=== PATIENT | female | born 1945 | race African-American/Black ===

== ENCOUNTER 2019-05-16 08:42 | Emergency (ER) | payer OTHER ==
[2019-05-16 08:59] VITALS: BP 177/89; PULSE 68; TEMP 98; BMI 28.8
--- NOTE | 2019-05-16 09:46 | PDOC ---
History of Present Illness - General Chief Complaint: Injury Stated Complaint: HEAD INJURY Time Seen by Provider: 05/16/19 09:01 History Source: Patient Exam Limitations: No Limitations Past History - Travel Traveled outside of the country in the last 30 days: No Close contact w/someone who was outside of country & ill: No - Past Medical History Allergies/Adverse Reactions: Allergies Allergy/AdvReac Type Severity Reaction Status Date / Time No Known Allergies Allergy Verified 05/16/19 08:56 Home Medications: Ambulatory Orders NK [No Known Home Medication] 05/16/19 COPD: No Diabetes: Yes (BORDERLINE) HTN: Yes Hypercholesterolemia: Yes - Immunization History Immunization Up to Date: No - Psycho Social/Smoking Cessation Hx Smoking History: Never smoked Hx Alcohol Use: No Drug/Substance Use Hx: No Review of Systems - Review of Systems Able to Perform ROS?: Yes Comments:: 05/16/19 09:41 CONSTITUTIONAL: Absent: fever, chills, diaphoresis, generalized weakness, malaise, loss of appetite HEENT: Absent: rhinorrhea, nasal congestion, throat pain, throat swelling, difficulty swallowing, mouth swelling, ear pain, eye pain, visual Changes MUSCULOSKELETAL: Absent: myalgia, arthralgia, joint swelling SKIN: Absent: rash, itching, pallor HEMATOLOGIC/IMMUNOLOGIC: Absent: easy bleeding, easy bruising, lymphadenopathy, frequent infections ENDOCRINE: Absent: unexplained weight gain, unexplained weight loss, heat intolerance, cold intolerance NEUROLOGIC: Absent: headache, focal weakness or paresthesias, dizziness, unsteady gait, seizure, mental status changes, bladder or bowel incontinence PSYCHIATRIC: Absent: anxiety, depression, suicidal or homicidal ideation, hallucinations. Is the patient limited Albanian proficient: No *Physical Exam - Vital Signs Last Vital Signs Temp Pulse Resp BP Pulse Ox 98.0 F 68 18 177/89 H 100 05/16/19 08:56 05/16/19 08:56 05/16/19 08:56 05/16/19 08:56 05/16/19 08:56 - Physical Exam 05/16/19 09:41 GENERAL: Well developed, well nourished. Awake and alert. No acute distress. HEENT: Normocephalic, atraumatic. PERRLA, EOMI. No conjunctival pallor. Sclera are non- icteric. Moist mucous membranes. Oropharynx is clear. NECK: Supple. Full ROM. No JVD. Carotid pulses 2+ and symmetric, without bruits. No thyromegaly. No lymphadenopathy. MUSCULOSKELETAL Normal range of motion at all joints. No bony deformities or tenderness. No CVA tenderness. EXTREMITIES: No cyanosis. No clubbing. No edema. No calf tenderness. SKIN: Warm and dry. Normal capillary refill. No rashes. No jaundice. NEUROLOGICAL: Alert, awake, appropriate. Cranial nerves 2-12 intact. No deficits to light touch and temperature in face, upper extremities and lower extremities. No motor deficits in the in face, upper extremities and lower extremities. Normoreflexic in the upper and lower extremities. Normal speech. Toes are down- going bilaterally. Gait is normal without ataxia. PSYCHIATRIC: Cooperative. Good eye contact. Appropriate mood and affect. Medical Decision Making - Medical Decision Making 05/16/19 09:42 The patient is a 73-year-old female who presents to the ER after hitting her head 1 week ago. She states that she bent over and hit her head on a counter. She denies headaches, dizziness, LOC at the time of the accident, vomiting. She has no complaints at this time. Pt does not take blood thinners A/P: Head injury On exam patient is neurologically intact with no focal findings. ENT exam is normal. Patient has no complaints at this time, she is not on blood thinners Likely she just bumped her head. No signs of concussion. Discharge home with primary care follow-up I discussed the physical exam findings, ancillary test results and final diagnoses with the patient. I answered all of the patient's questions. The patient was satisfied with the care received and felt comfortable with the discharge plan and treatment plan. The Patient agrees to follow up with the primary care physician/specialist within 24-72 hours. Return precautions were given. Discharge - Discharge Information Problems reviewed: Yes Clinical Impression/Diagnosis: Head injury Qualifiers: Encounter type: initial encounter Qualified Code(s): S09.90XA - Unspecified injury of head, initial encounter Condition: Stable Disposition: HOME - Admission No - Follow up/Referral Referrals: Dallas Oneal [Primary Care Provider] - - Patient Discharge Instructions Additional Instructions: You were evaluated for your head injury today. Your exam was normal. I do not expect you to have any concussion-like symptoms since the head injury happened a week ago. Please follow-up with your primary care doctor as needed. Return to the ER for any new or concerning symptoms. - Post Discharge Activity
== END 2019-05-16 09:55 | disposition home or self-care (01) ==
LOC: JERFT 08:42
DX: S09.90XA Unspecified injury of head, initial encounter (principal); R73.03 Prediabetes; I10 Essential (primary) hypertension; E78.00 Pure hypercholesterolemia, unspecified
CPT/HCPCS: 99281-25

== ENCOUNTER 2019-11-03 08:37 | Day surgery (SDC) | payer OTHER ==
[2019-10-31 16:24] VITALS: BMI 28.0
--- NOTE | 2019-11-03 07:39 | HP ---
History & Physical Update - History History: No Change - Physical Physical: No Change - Assessment Assessment: No Change - Plan Plan: No Change (No change in HP)
[~2019-11-03 08:37] MED LIST: ACETAMINOPHEN 325 MG TABLET (FP) PO PRN; IBUPROFEN 400 MG TABLET (FP) PO PRN
[2019-11-03] MEDS ORDERED: SODIUM CHLORIDE 0.9% P/F 10 ML VIAL IJ ONE (10:33)
[2019-11-03] MEDS ORDERED: LIDOCAINE HCL/PF 2% SDV 5ML VIAL ONE (10:33)
[2019-11-03] MEDS ORDERED: ceFAZolin SODIUM 1 GM VIAL ONE (10:33)
[2019-11-03] MEDS ORDERED: KETOROLAC TROMETHAMINE 30 MG/1 ML VIAL ONE (10:33)
[2019-11-03] MEDS ORDERED: DEXAMETHASONE SOD PHOSPHATE 4 MG/1 ML VIAL ONE (10:33)
[2019-11-03] MEDS ORDERED: ONDANSETRON 4 MG/2 ML VIAL IVPUSH PRN (12:06)
[2019-11-03] MEDS ORDERED: oxyCODONE HCL 5 MG TABLET PO PRN (12:06)
[2019-11-03] MEDS ORDERED: LACTATED RINGERS SOLUTION 1,000 ML IV SCH (12:15)
[2019-11-03 17:17] VITALS: TEMP 97.4
[2019-11-03 18:10] VITALS: BP 170/80; PULSE 60
--- NOTE | 2019-11-04 16:40 | PATH ---
Surgical Pathology Report Patient Name: AALIYAH PINEDA [facility]. Rec. #: [id number] /Age/Gender: 1945 (Age: 74) / F Account: [id number] Location: [facility] SURGICAL Taken: 11/03/2019 Received: 11/03/2019 Reported: 11/04/2019 Physicians: Navya Llye M.D. Specimen(s) Received A: ENDOMETRIAL CURETTINGS B: ENDOMETRIAL POLYP Clinical History Endometrial hyperplasia Final Diagnosis A. ENDOMETRIAL CURETTINGS, DILATION AND CURETTAGE: STRIPS OF ENDOMETRIAL GLANDS CONSISTENT WITH ATROPHIC ENDOMETRIUM, ENDOMETRIAL POLYP, AND BENIGN CERVICAL SQUAMOUS MUCOSA. B. ENDOMETRIAL POLYP, BIOPSY: ENDOMETRIAL POLYP. Electronically Signed Elzbieta Vidales M.D. Gross Description A. Received in formalin labeled "endometrial curettings" is a 1.0 x 0.7 x 0.1 cm aggregate of red-brown soft tissue fragments. The formalin is filtered and the specimen is entirely submitted in one cassette. B. Received in formalin labeled "endometrial polyp," is a 3.8 x 2.0 x 0.9 cm burgos-pink, polypoid portion of soft tissue. The specimen is trisected and entirely submitted in 3 cassettes. /11/03/201911/03/2019
--- NOTE | 2019-11-12 19:19 | OP ---
DATE OF OPERATION: 11/03/2019 PREOPERATIVE DIAGNOSIS: Endometrial polyp and endometrial hyperplasia. POSTOPERATIVE DIAGNOSIS: Endometrial polyp and endometrial hyperplasia. OPERATION: Endoscopic myomectomy and suction dilation and curettage. SURGEON: Navya Lyle MD. ANESTHESIA: General. PROCEDURE: Patient was taken to the operating room, placed in dorsal lithotomy position. Prepped and draped in the usual sterile fashion. Timeout was performed in accordance with hospital regulation. Speculum is placed in the vagina. Anterior lip of the cervix was grasped with single-toothed tenaculum. Cervix then dilated to accommodate the operative hysteroscope. Visualization revealed a large endometrial polyp. Cutting and cautery of the endometrial polyp was done followed by polyp removal with polyp forceps. Operative removal was done followed by suction dilation and curettage. After suction dilation and curettage had been done, all contents were removed. All instruments then removed. Patient tolerated procedure well. Estimated blood loss was about 10 mL. NAVYA LYLE M.D. [id number]
== END 2019-11-03 13:30 | disposition home or self-care (01) ==
LOC: JASU-SURG 08:37
PROVIDERS: ATTEND Obstetrics & Gynecology
PROC: 0UB98ZX Excision of Uterus, Via Natural or Artificial Opening Endoscopic, Diagnostic (ICD-10-PCS; principal; 2019-11-03 10:30)
PROC: 0UDB8ZX Extraction of Endometrium, Via Natural or Artificial Opening Endoscopic, Diagnostic (ICD-10-PCS; 2019-11-03 10:30)
DX: N84.0 Polyp of corpus uteri (principal)
CPT/HCPCS: 86850; 86900; 86901; 88305-TC; 94760

== ENCOUNTER 2021-10-03 16:34 | Inpatient (IN) | payer OTHER ==
[2021-10-03] MEDS ORDERED: ACETAMINOPHEN 325 MG TABLET (FP) PO ONE (19:31)
[2021-10-03] MEDS ORDERED: ACETAMINOPHEN 325 MG TABLET (FP) ONE (20:34)
[2021-10-03 21:05] LABS: BASO % 0.7 % (0-2.0); EOS % 1.3 % (0-4.5); HEMATOCRIT 35.7 % (32.4-45.2); HEMOGLOBIN 11.8 GM/dL (10.7-15.3); LYMPH % 31.4 % (8-40); MCH 29.7 pg (25.7-33.7); MCHC 33.1 g/dl (32.0-36.0); MEAN CELL VOLUME 89.9 fl (80-96); MONO % 6.9 % (3.8-10.2); NEUT % 59.7 % (42.8-82.8); PLATELET COUNT 406 10^3/uL (134-434); RBC 3.97 M/mm3 (3.60-5.2); RDW 14.9 % (11.6-15.6); WHITE BLOOD COUNT 6.2 K/mm3 (4.0-10.0)
[2021-10-03 21:12] LABS: INR 1.57 (0.83-1.09); PROTHROMBIN TIME (PATIENT) 18.1 SEC (9.7-13.0)
[2021-10-03 21:22] LABS: ALBUMIN 3.2 g/dl (3.4-5.0); BLOOD UREA NITROGEN 20.6 mg/dL (7-18); MAGNESIUM 2.4 mg/dL (1.8-2.4)
[2021-10-03 21:25] LABS: CREATININE 0.8 mg/dL (0.55-1.3)
[2021-10-03 21:26] LABS: BILIRUBIN,TOTAL 0.3 mg/dL (0.2-1)
[2021-10-04] MEDS ORDERED: SODIUM CHLORIDE 0.9% 500 ML INFUS.BAG IV ONE (01:08)
[2021-10-04] MEDS ORDERED: APIXABAN 5 MG TABLET PO ONE ×2 (01:13→02:28)
[2021-10-04] MEDS ORDERED: APIXABAN 5 MG TABLET ONE (03:06)
[2021-10-04 08:01] LABS: BASO % 0.7 % (0-2.0); EOS % 1.5 % (0-4.5); HEMATOCRIT 36.2 % (32.4-45.2); LYMPH % 23.2 % (8-40); MCH 29.5 pg (25.7-33.7); MCHC 33.2 g/dl (32.0-36.0); MEAN CELL VOLUME 88.7 fl (80-96); MEAN PLT VOLUME 8.5 fl (7.5-11.1); NEUT % 66.6 % (42.8-82.8); PLATELET COUNT 377 10^3/uL (134-434); RBC 4.08 M/mm3 (3.60-5.2); RDW 14.6 % (11.6-15.6); WHITE BLOOD COUNT 6.5 K/mm3 (4.0-10.0)
[2021-10-04 08:16] LABS: CALCIUM 9.2 mg/dL (8.5-10.1)
[2021-10-04 08:17] LABS: ALBUMIN 3.5 g/dl (3.4-5.0); BLOOD UREA NITROGEN 14.2 mg/dL (7-18); MAGNESIUM 2.4 mg/dL (1.8-2.4)
[2021-10-04 08:19] LABS: PHOSPHOROUS 3.5 mg/dL (2.5-4.9)
[2021-10-04 08:20] LABS: CREATININE 0.7 mg/dL (0.55-1.3)
[2021-10-04 08:21] LABS: BILIRUBIN,TOTAL 0.5 mg/dL (0.2-1); TOT PROT 7.7 g/dl (6.4-8.2)
[2021-10-04] MEDS ORDERED: QUEtiapine FUMARATE 25 MG TABLET PO ONE (14:45)
[2021-10-04] MEDS ORDERED: LISINOPRIL 10 MG TABLET PO ONE (14:45)
[2021-10-04] MEDS: APIXABAN 5 MG TABLET PO SCH ×2 (15:21→22:30)
[2021-10-04 16:13] VITALS: BMI 22.4
[2021-10-04] MEDS: ATORVASTATIN CA 10 MG TABLET (FP) PO SCH (22:30)
[2021-10-05] MEDS: ATORVASTATIN CA 10 MG TABLET (FP) PO SCH ×2 (00:05→21:49)
[2021-10-05] MEDS: APIXABAN 5 MG TABLET PO SCH ×3 (00:05→21:49)
[2021-10-05] MEDS: CHOLECALCIFEROL (VIT D3) 400 UNIT (10 MCG) TABLET PO SCH (10:31)
[2021-10-05] MEDS: ASPIRIN COATED 81 MG TABLET.EC PO SCH (10:31)
[2021-10-05] MEDS: busPIRone HCL 5 MG TABLET PO SCH (10:31)
[2021-10-05] MEDS: LISINOPRIL 10 MG TABLET PO SCH (21:50)
[2021-10-06 08:14] LABS: BASO % 0.2 % (0-2.0); EOS % 0.1 % (0-4.5); HEMATOCRIT 36.3 % (32.4-45.2); HEMOGLOBIN 12.3 GM/dL (10.7-15.3); LYMPH % 7.3 % (8-40); MCH 29.9 pg (25.7-33.7); MCHC 33.8 g/dl (32.0-36.0); MEAN CELL VOLUME 88.7 fl (80-96); MEAN PLT VOLUME 9.1 fl (7.5-11.1); MONO % 5.6 % (3.8-10.2); NEUT % 86.8 % (42.8-82.8); PLATELET COUNT 395 10^3/uL (134-434); RBC 4.09 M/mm3 (3.60-5.2); RDW 14.9 % (11.6-15.6); WHITE BLOOD COUNT 15.1 K/mm3 (4.0-10.0)
[2021-10-06 08:38] LABS: CALCIUM 9.2 mg/dL (8.5-10.1)
[2021-10-06 08:39] LABS: BLOOD UREA NITROGEN 29.2 mg/dL (7-18)
[2021-10-06 08:40] LABS: CREATININE 1.4 mg/dL (0.55-1.3)
[2021-10-06 08:42] LABS: BILIRUBIN,TOTAL 0.6 mg/dL (0.2-1); TOT PROT 6.7 g/dl (6.4-8.2)
[2021-10-06] MEDS: APIXABAN 5 MG TABLET PO SCH ×2 (10:03→23:15)
[2021-10-06] MEDS: ASPIRIN COATED 81 MG TABLET.EC PO SCH (10:03)
[2021-10-06] MEDS: busPIRone HCL 5 MG TABLET PO SCH (10:03)
[2021-10-06] MEDS: CHOLECALCIFEROL (VIT D3) 400 UNIT (10 MCG) TABLET PO SCH (10:03)
[2021-10-06] MEDS: LISINOPRIL 10 MG TABLET PO SCH (23:15)
[2021-10-06] MEDS: ATORVASTATIN CA 10 MG TABLET (FP) PO SCH (23:15)
[2021-10-07] MEDS: ASPIRIN COATED 81 MG TABLET.EC PO SCH (10:15)
[2021-10-07] MEDS: APIXABAN 5 MG TABLET PO SCH ×2 (10:15→21:51)
[2021-10-07] MEDS: CHOLECALCIFEROL (VIT D3) 400 UNIT (10 MCG) TABLET PO SCH (10:15)
[2021-10-07] MEDS: busPIRone HCL 5 MG TABLET PO SCH (10:17)
[2021-10-07 16:34] LABS: BASO % 0.4 % (0-2.0); EOS % 0.1 % (0-4.5); HEMATOCRIT 37.4 % (32.4-45.2); HEMOGLOBIN 12.2 GM/dL (10.7-15.3); LYMPH % 7.9 % (8-40); MCH 29.4 pg (25.7-33.7); MCHC 32.7 g/dl (32.0-36.0); MEAN CELL VOLUME 89.8 fl (80-96); MEAN PLT VOLUME 9.2 fl (7.5-11.1); MONO % 5.7 % (3.8-10.2); NEUT % 85.9 % (42.8-82.8); PLATELET COUNT 385 10^3/uL (134-434); RBC 4.16 M/mm3 (3.60-5.2); RDW 14.9 % (11.6-15.6); WHITE BLOOD COUNT 15.8 K/mm3 (4.0-10.0)
[2021-10-07 16:59] LABS: BLOOD UREA NITROGEN 43.7 mg/dL (7-18)
[2021-10-07 17:02] LABS: CREATININE 1.4 mg/dL (0.55-1.3)
[2021-10-07 17:04] LABS: BILIRUBIN,TOTAL 0.9 mg/dL (0.2-1)
[2021-10-07] MEDS ORDERED: SODIUM CHLORIDE 0.9% 500 ML INFUS.BAG IV ONE (17:44)
[2021-10-07] MEDS ORDERED: LORazepam 2 MG/ML SDV VIAL IM ONE (18:18)
[2021-10-07] MEDS: amLODIPine BESYLATE 10 MG TABLET (FP) PO SCH (18:40)
[2021-10-07] MEDS ORDERED: KCL 10 MEQ IVPB 10 MEQ/100 ML INFUS.BAG IVPB SCH (19:00)
[2021-10-07] MEDS: D5-1/2NS+20 MEQ KCL - 20 MEQ/1,000 ML INFUS.BAG IV SCH (21:49)
[2021-10-07] MEDS: ATORVASTATIN CA 10 MG TABLET (FP) PO SCH (21:51)
[2021-10-07] MEDS ORDERED: LISINOPRIL 20 MG TABLET PO SCH (22:00)
[2021-10-08] MEDS: ASPIRIN COATED 81 MG TABLET.EC PO SCH (10:57)
[2021-10-08] MEDS: APIXABAN 5 MG TABLET PO SCH (10:57)
[2021-10-08] MEDS: busPIRone HCL 5 MG TABLET PO SCH (10:57)
[2021-10-08] MEDS: CHOLECALCIFEROL (VIT D3) 400 UNIT (10 MCG) TABLET PO SCH (10:58)
[2021-10-08] MEDS: amLODIPine BESYLATE 10 MG TABLET (FP) PO SCH (10:58)
[2021-10-08 13:03] LABS: BASO % 0.2 % (0-2.0); EOS % 0.3 % (0-4.5); HEMATOCRIT 36.7 % (32.4-45.2); HEMOGLOBIN 12.2 GM/dL (10.7-15.3); LYMPH % 5.7 % (8-40); MCH 29.8 pg (25.7-33.7); MCHC 33.2 g/dl (32.0-36.0); MEAN CELL VOLUME 89.7 fl (80-96); MEAN PLT VOLUME 9.5 fl (7.5-11.1); MONO % 6.4 % (3.8-10.2); NEUT % 87.4 % (42.8-82.8); PLATELET COUNT 354 10^3/uL (134-434); RBC 4.09 M/mm3 (3.60-5.2); RDW 14.7 % (11.6-15.6); WHITE BLOOD COUNT 14.8 K/mm3 (4.0-10.0)
[2021-10-08 13:25] LABS: BLOOD UREA NITROGEN 44.8 mg/dL (7-18)
[2021-10-08 13:26] LABS: ALBUMIN 2.6 g/dl (3.4-5.0); CALCIUM 8.6 mg/dL (8.5-10.1); MAGNESIUM 2.9 mg/dL (1.8-2.4)
[2021-10-08 13:28] LABS: CREATININE 1.6 mg/dL (0.55-1.3)
[2021-10-08 13:30] LABS: TOT PROT 6.7 g/dl (6.4-8.2)
[2021-10-08 13:33] LABS: BILIRUBIN,TOTAL 0.8 mg/dL (0.2-1)
[2021-10-08] MEDS ORDERED: cefTRIAXone SODIUM 1 GM VIAL ONE (15:52)
[2021-10-08] MEDS ORDERED: DEXTROSE 5%-WATER - 50 ML IVPB ONE (15:52)
[2021-10-08] MEDS: CEFTRIAXONE 1 GM in DEXTROSE 5%-WATER - 50 ML IVPB SCH (15:53)
[2021-10-08] MEDS: ENOXAPARIN NA (PORCINE) 60 MG/0.6 ML DISP.SYRIN SQ SCH ×2 (15:53→22:15)
[2021-10-08] MEDS: D5-1/2NS+20 MEQ KCL - 20 MEQ/1,000 ML INFUS.BAG IV SCH (15:53)
[2021-10-08 16:00] LABS: EPI CELLS 4 /uL (0-25.1); HYALINE CASTS 1 /uL (0-3.1); PH,URINE 5.5 (5.0-8.0); URINE APPEARANCE CLEAR; URINE BACTERIA 11 /uL (0-1359); URINE BILIRUBIN NEGATIVE (NEGATIVE); URINE COLOR YELLOW; URINE GLUCOSE (UA) NEGATIVE (NEGATIVE); URINE KETONE NEGATIVE (NEGATIVE); URINE LEUK ESTERASE NEGATIVE (NEGATIVE); URINE NITRITE NEGATIVE (NEGATIVE); URINE PROTEIN 1+ (NEGATIVE); URINE RBC 146 /uL (0-23.9); URINE WBC 13 /uL (0-25.8)
[2021-10-08] MEDS: TIMOLOL 0.5% NR SCH (16:41)
[2021-10-08] MEDS: ATORVASTATIN CA 10 MG TABLET (FP) PO SCH (22:15)
[2021-10-09] MEDS: D5-1/2NS+20 MEQ KCL - 20 MEQ/1,000 ML INFUS.BAG IV SCH ×3 (05:27→19:00)
[2021-10-09] MEDS ORDERED: cefTRIAXone SODIUM 1 GM VIAL ONE (08:44)
[2021-10-09] MEDS ORDERED: DEXTROSE 5%-WATER - 50 ML IVPB ONE (08:44)
[2021-10-09] MEDS: ENOXAPARIN NA (PORCINE) 60 MG/0.6 ML DISP.SYRIN SQ SCH ×2 (09:00→21:12)
[2021-10-09] MEDS: CEFTRIAXONE 1 GM in DEXTROSE 5%-WATER - 50 ML IVPB SCH (09:00)
[2021-10-09] MEDS: ASPIRIN COATED 81 MG TABLET.EC PO SCH (09:01)
[2021-10-09] MEDS: busPIRone HCL 5 MG TABLET PO SCH (09:01)
[2021-10-09] MEDS: CHOLECALCIFEROL (VIT D3) 400 UNIT (10 MCG) TABLET PO SCH (09:01)
[2021-10-09] MEDS: amLODIPine BESYLATE 10 MG TABLET (FP) PO SCH (09:01)
[2021-10-09 10:27] LABS: BASO % 0.5 % (0-2.0); EOS % 2.2 % (0-4.5); HEMATOCRIT 37.3 % (32.4-45.2); HEMOGLOBIN 12.6 GM/dL (10.7-15.3); LYMPH % 13.9 % (8-40); MCH 30.1 pg (25.7-33.7); MCHC 33.6 g/dl (32.0-36.0); MEAN CELL VOLUME 89.5 fl (80-96); MEAN PLT VOLUME 9.4 fl (7.5-11.1); MONO % 4.7 % (3.8-10.2); NEUT % 78.7 % (42.8-82.8); PLATELET COUNT 358 10^3/uL (134-434); RBC 4.17 M/mm3 (3.60-5.2); RDW 14.6 % (11.6-15.6); WHITE BLOOD COUNT 9.9 K/mm3 (4.0-10.0)
[2021-10-09 10:56] LABS: ALBUMIN 2.5 g/dl (3.4-5.0); CALCIUM 8.6 mg/dL (8.5-10.1)
[2021-10-09 10:57] LABS: BLOOD UREA NITROGEN 35.3 mg/dL (7-18)
[2021-10-09 11:00] LABS: PHOSPHOROUS 2.6 mg/dL (2.5-4.9)
[2021-10-09 11:01] LABS: BILIRUBIN,TOTAL 0.7 mg/dL (0.2-1); TOT PROT 6.7 g/dl (6.4-8.2)
[2021-10-09] MEDS: ATORVASTATIN CA 10 MG TABLET (FP) PO SCH (21:12)
[2021-10-09] MEDS: LORazepam 2 MG/ML SDV VIAL IM PRN (22:02)
[2021-10-10] MEDS: POTASSIUM CHLORIDE 10 MEQ in SODIUM CHLORIDE 0.45% 1,000 ML IVPB SCH ×2 (03:00→15:57)
[2021-10-10 08:54] LABS: CHLORIDE 110 mmol/L (98-107); SODIUM 142 mmol/L (136-145)
[2021-10-10 08:57] LABS: CALCIUM 7.9 mg/dL (8.5-10.1)
[2021-10-10 08:58] LABS: CO2 29 mmol/L (21-32); GLUCOSE,RANDOM 81 mg/dL (74-106)
[2021-10-10 09:01] LABS: CREATININE 0.8 mg/dL (0.55-1.3)
[2021-10-10 09:04] LABS: ANION GAP 4 MMOL/L (8-16)
[2021-10-10] MEDS ORDERED: DEXTROSE 5%-WATER - 50 ML IVPB ONE ×2 (09:54→10:09)
[2021-10-10] MEDS ORDERED: cefTRIAXone SODIUM 1 GM VIAL ONE ×2 (09:54→10:09)
[2021-10-10] MEDS: busPIRone HCL 5 MG TABLET PO SCH (10:06)
[2021-10-10] MEDS: amLODIPine BESYLATE 10 MG TABLET (FP) PO SCH (10:06)
[2021-10-10] MEDS: CHOLECALCIFEROL (VIT D3) 400 UNIT (10 MCG) TABLET PO SCH (10:06)
[2021-10-10] MEDS: ENOXAPARIN NA (PORCINE) 60 MG/0.6 ML DISP.SYRIN SQ SCH ×2 (10:11→21:40)
[2021-10-10] MEDS: CEFTRIAXONE 1 GM in DEXTROSE 5%-WATER - 50 ML IVPB SCH (10:11)
[2021-10-10 13:25] LABS: ALBUMIN 2.4 g/dl (3.4-5.0); CALCIUM 8.1 mg/dL (8.5-10.1)
[2021-10-10 13:26] LABS: BLOOD UREA NITROGEN 21.6 mg/dL (7-18)
[2021-10-10 13:28] LABS: CREATININE 0.7 mg/dL (0.55-1.3)
[2021-10-10 13:30] LABS: BILIRUBIN,TOTAL 0.7 mg/dL (0.2-1); TOT PROT 6.5 g/dl (6.4-8.2)
[2021-10-10] MEDS: LORazepam 2 MG/ML SDV VIAL IM PRN (18:54)
[2021-10-10] MEDS: ATORVASTATIN CA 10 MG TABLET (FP) PO SCH (21:41)
[2021-10-11] MEDS: POTASSIUM CHLORIDE 10 MEQ in SODIUM CHLORIDE 0.45% 1,000 ML IVPB SCH ×2 (01:48→05:01)
[2021-10-11] MEDS ORDERED: DEXTROSE 5%-WATER - 50 ML IVPB ONE (09:09)
[2021-10-11] MEDS ORDERED: cefTRIAXone SODIUM 1 GM VIAL ONE (09:09)
[2021-10-11] MEDS: CEFTRIAXONE 1 GM in DEXTROSE 5%-WATER - 50 ML IVPB SCH (09:10)
[2021-10-11] MEDS: ENOXAPARIN NA (PORCINE) 60 MG/0.6 ML DISP.SYRIN SQ SCH (09:10)
[2021-10-11] MEDS: busPIRone HCL 5 MG TABLET PO SCH (09:11)
[2021-10-11] MEDS: amLODIPine BESYLATE 10 MG TABLET (FP) PO SCH (09:11)
[2021-10-11] MEDS: CHOLECALCIFEROL (VIT D3) 400 UNIT (10 MCG) TABLET PO SCH (09:11)
[2021-10-11 11:15] LABS: BASO % 0.6 % (0-2.0); EOS % 0.9 % (0-4.5); HEMATOCRIT 37.2 % (32.4-45.2); HEMOGLOBIN 12.6 GM/dL (10.7-15.3); LYMPH % 20.7 % (8-40); MCH 30.1 pg (25.7-33.7); MCHC 33.9 g/dl (32.0-36.0); MEAN CELL VOLUME 88.8 fl (80-96); MEAN PLT VOLUME 10.4 fl (7.5-11.1); MONO % 4.1 % (3.8-10.2); NEUT % 73.7 % (42.8-82.8); PLATELET COUNT 389 10^3/uL (134-434); RBC 4.19 M/mm3 (3.60-5.2); RDW 14.5 % (11.6-15.6); WHITE BLOOD COUNT 8.4 K/mm3 (4.0-10.0)
[2021-10-11 11:39] VITALS: BP 145/86; PULSE 80; TEMP 97.7
[2021-10-11 11:59] LABS: ALBUMIN 2.6 g/dl (3.4-5.0); BLOOD UREA NITROGEN 16.2 mg/dL (7-18); CALCIUM 8.7 mg/dL (8.5-10.1)
[2021-10-11 12:02] LABS: CREATININE 0.6 mg/dL (0.55-1.3)
[2021-10-11 12:04] LABS: BILIRUBIN,TOTAL 0.6 mg/dL (0.2-1); TOT PROT 6.5 g/dl (6.4-8.2)
[2021-10-11] MEDS ORDERED: POTASSIUM CHLORIDE TABS 20 MEQ TABLET.ER (FP) PO ONE (12:49)
[2021-10-11] MEDS ORDERED: POTASSIUM CHLORIDE 10 MEQ in SODIUM CHLORIDE 0.45% 1,000 ML IVPB SCH (12:50)
== END 2021-10-11 20:17 | DRG 176 ==
LOC: JER 16:34 → JERBED 10-04 02:03 → J6S 10-04 12:40
PROVIDERS: ADMIT Hospitalist
DX: I26.99 Other pulmonary embolism without acute cor pulmonale (principal); N17.9 Acute kidney failure, unspecified; E87.0 Hyperosmolality and hypernatremia; N13.39 Other hydronephrosis; I82.4Z2 Acute embolism and thrombosis of unspecified deep veins of left distal lower extremity; R07.89 Other chest pain; E11.9 Type 2 diabetes mellitus without complications; F03.90 Unspecified dementia, unspecified severity, without behavioral disturbance, psychotic disturbance, mood disturbance, and anxiety; N14.1 Nephropathy induced by other drugs, medicaments and biological substances; T50.8X5A Adverse effect of diagnostic agents, initial encounter; E78.5 Hyperlipidemia, unspecified; F32.A Depression, unspecified; H40.89 Other specified glaucoma; M19.90 Unspecified osteoarthritis, unspecified site; E87.6 Hypokalemia; E86.0 Dehydration; D72.829 Elevated white blood cell count, unspecified; R31.0 Gross hematuria
CPT/HCPCS: 36415; 70450-TC; 71275-TC; 74177-TC; 76775-TC; 80048; 80053; 81003; 82436; 82570; 83036; 83735; 84100; 84133; 84156; 84300; 84443; 84484; 84540; 85025; 85610; 85730; 87086; 93005; 93010; 93306-TC; 97116-GP; 97162-GP; 99285-25; C9803-CS; Q9967; U0003; U0005

== ENCOUNTER 2022-07-25 00:01 | Inpatient (IN) | payer OTHER ==
[2022-07-25] MEDS ORDERED: PIPERACILLIN/TAZOB 3.375 GM 3.375 GM in DEXTROSE 5%-WATER - 50 ML IVPB ONE (01:36)
[2022-07-25] MEDS ORDERED: VANCOMYCIN 1 GM in D5W (PRE-DOCKED) 1,000 MG/250 ML IVPB ONE (01:36)
[2022-07-25] MEDS ORDERED: ACETAMINOPHEN 1000 MG/100 ML BAG IVPB ONE (01:36)
[2022-07-25 01:41] LABS: HEMATOCRIT 33.5 % (32.4-45.2); HEMOGLOBIN 10.7 GM/dL (10.7-15.3); MCH 29.2 pg (25.7-33.7); MEAN CELL VOLUME 91.5 fl (80-96); MEAN PLT VOLUME 10.3 fl (7.5-11.1); PLATELET COUNT 350 10^3/uL (134-434); RBC 3.66 M/mm3 (3.60-5.2); RDW 15.9 % (11.6-15.6); WHITE BLOOD COUNT 14.3 K/mm3 (4.0-10.0)
[2022-07-25 01:42] LABS: VENOUS BASE EXCESS -3.9 mmol/L (-2-2); VENOUS O2 SATURATION 91.8 % (70-80); VENOUS PCO2 29.6 mmHg (38-52); VENOUS PH 7.434 (7.310-7.410)
[2022-07-25 01:43] LABS: CHLORIDE 116 mmol/L (98-107); SODIUM 146 mmol/L (136-145)
[2022-07-25 01:44] LABS: EPI CELLS 24 /uL (0-25.1); HYALINE CASTS 17 /uL (0-3.1); URINE APPEARANCE CLOUDY; URINE BILIRUBIN 1+ (NEGATIVE); URINE COLOR DK YELLOW; URINE GLUCOSE (UA) NEGATIVE (NEGATIVE); URINE KETONE NEGATIVE (NEGATIVE); URINE LEUK ESTERASE TRACE (NEGATIVE); URINE NITRITE POSITIVE (NEGATIVE); URINE PROTEIN 1+ (NEGATIVE); URINE WBC 39 /uL (0-25.8)
[2022-07-25 01:45] LABS: CALCIUM 7.6 mg/dL (8.5-10.1)
[2022-07-25 01:46] LABS: ALBUMIN 1.5 g/dl (3.4-5.0); BLOOD UREA NITROGEN 82.6 mg/dL (7-18); CO2 17 mmol/L (21-32); GLUCOSE,RANDOM 96 mg/dL (74-106)
[2022-07-25] MEDS ORDERED: ACETAMINOPHEN INJECTION 100 ML IVPB ONE (01:48)
[2022-07-25] MEDS ORDERED: PIPERACILLIN/TAZOB 3.375 GM 3.375 GM/50 ML BAG IVPB ONE (01:48)
[2022-07-25] MEDS ORDERED: VANCOMYCIN/WATER FOR INJ (PEG) 1,000 MG/200 ML BAG IVPB ONE ×2 (01:48→13:45)
[2022-07-25 01:49] LABS: SGOT/AST 128 U/L (15-37); SGPT/ALT 46 U/L (13-61)
[2022-07-25 01:51] LABS: TOT PROT 5.6 g/dl (6.4-8.2)
[2022-07-25 01:52] LABS: ALK PHOS 62 U/L (45-117)
[2022-07-25 01:55] LABS: INR 1.09 (0.83-1.09); PROTHROMBIN TIME (PATIENT) 12.6 SEC (9.7-13.0)
[2022-07-25 01:58] LABS: ACTIVATED PTT 29.9 SECONDS (25.2-36.5)
[2022-07-25 02:22] LABS: ANION GAP 14 MMOL/L (8-16); LACTIC ACID 2.3 mmol/L (0.4-2.0)
[2022-07-25 04:08] LABS: CALCIUM 7.2 mg/dL (8.5-10.1)
[2022-07-25 04:09] LABS: BLOOD UREA NITROGEN 80.2 mg/dL (7-18)
[2022-07-25 04:12] LABS: CREATININE 3.5 mg/dL (0.55-1.3)
[2022-07-25 04:30] LABS: LACTIC ACID 2.3 mmol/L (0.4-2.0)
[2022-07-25 05:03] LABS: ANISOCYTOSIS 1+; MACROCYTOSIS 0; OVALOCYTE 1+; TARGET CELLS 1+
[2022-07-25] MEDS ORDERED: SODIUM CHLORIDE 1,000 ML IV STA (05:03)
[2022-07-25] MEDS ORDERED: NOREPINEPHRINE BITARTRATE/D5W 8 MG/250 ML BAG IVPB ONE ×2 (06:12→06:13)
[2022-07-25] MEDS ORDERED: NOREPINEPHRINE BITARTRATE 4,000 MCG in DEXTROSE 5%-WATER - 496 ML IV SCH (06:15)
[2022-07-25] MEDS: NOREPINEPHRINE BITARTRATE 8,000 MCG in DEXTROSE 5%-WATER - 492 ML IV SCH (06:20)
[2022-07-25 06:21] LABS: YEAST NONE SEEN (NEGATIVE)
[2022-07-25] MEDS ORDERED: PIPERACILLIN/TAZOB 2.25 GM 2.25 GM in DEXTROSE 5%-WATER - 50 ML IVPB ONE (08:30)
[2022-07-25] MEDS ORDERED: PIPERACILLIN/TAZOB 2.25 GM 2.25 GM/50 ML BAG IVPB ONE (09:36)
[2022-07-25] MEDS ORDERED: cefOXitin SODIUM 2 GM VIAL (RESTRICTED TO ID) IVPB ONE (10:52)
[2022-07-25] MEDS ORDERED: BUPIVACAINE HCL/PF 0.25% (2.5MG/ML) 10 ML VIAL ONE (10:52)
[2022-07-25 11:21] VITALS: BMI 20.2
[2022-07-25] MEDS ORDERED: PIPERACILLIN/TAZOB 3.375 GM 3.375 GM in DEXTROSE 5%-WATER - 50 ML IVPB SCH ×2 (12:30→18:00)
[2022-07-25] MEDS: LACTATED RINGERS SOLUTION 1,000 ML/1,000 ML INFUS.BAG IV SCH ×2 (13:16→23:56)
[2022-07-25] MEDS: MUPIROCIN 2% TOPICAL OINTMENT FOR DECOLONIZATION NS SCH ×2 (13:34→21:32)
[2022-07-25] MEDS: CLINDAMYCIN 600MG PREMIX IVPB 600 MG/50 ML BAG IVPB SCH (17:33)
[2022-07-25] MEDS: PIPERACILLIN/TAZOB 2.25 GM 2.25 GM in DEXTROSE 5%-WATER - 50 ML IVPB SCH (17:33)
[2022-07-25] MEDS: CHLORHEXIDINE GLUCONATE 4% CLEANSER FOR DECOLONIZATION TP SCH (21:32)
[2022-07-25] MEDS: ENOXAPARIN NA (PORCINE) 30 MG/0.3 ML DISP.SYRIN SQ SCH (21:33)
[2022-07-25] MEDS: ACETAMINOPHEN 1000 MG/100 ML BAG IVPB PRN (21:41)
[2022-07-26] MEDS: PIPERACILLIN/TAZOB 2.25 GM 2.25 GM in DEXTROSE 5%-WATER - 50 ML IVPB SCH ×3 (01:38→17:05)
[2022-07-26] MEDS: CLINDAMYCIN 600MG PREMIX IVPB 600 MG/50 ML BAG IVPB SCH ×3 (01:38→17:05)
[2022-07-26 07:57] LABS: INR 1.17 (0.83-1.09); PROTHROMBIN TIME (PATIENT) 13.5 SEC (9.7-13.0)
[2022-07-26 08:19] LABS: ALBUMIN 1.4 g/dl (3.4-5.0); BLOOD UREA NITROGEN 86.6 mg/dL (7-18)
[2022-07-26 08:21] LABS: HEMATOCRIT 32.6 % (32.4-45.2); HEMOGLOBIN 11.2 GM/dL (10.7-15.3); MCH 30.4 pg (25.7-33.7); MCHC 34.2 g/dl (32.0-36.0); MEAN CELL VOLUME 88.8 fl (80-96); MEAN PLT VOLUME 9.5 fl (7.5-11.1); PLATELET COUNT 364 10^3/uL (134-434); RBC 3.67 M/mm3 (3.60-5.2); RDW 16.1 % (11.6-15.6); WHITE BLOOD COUNT 19.2 K/mm3 (4.0-10.0)
[2022-07-26 08:22] LABS: CREATININE 1.5 mg/dL (0.55-1.3); PHOSPHOROUS 5.3 mg/dL (2.5-4.9)
[2022-07-26 08:23] LABS: BILIRUBIN,TOTAL 0.8 mg/dL (0.2-1); TOT PROT 5.1 g/dl (6.4-8.2)
[2022-07-26 09:25] LABS: ANISOCYTOSIS 1+; MACROCYTOSIS 0; OVALOCYTE 2+; TARGET CELLS 2+; TEAR DROP CELLS 2+
[2022-07-26] MEDS: NOREPINEPHRINE BITARTRATE 8,000 MCG in DEXTROSE 5%-WATER - 492 ML IV SCH (09:28)
[2022-07-26] MEDS: MUPIROCIN 2% TOPICAL OINTMENT FOR DECOLONIZATION NS SCH ×2 (09:29→22:46)
[2022-07-26] MEDS: ENOXAPARIN NA (PORCINE) 30 MG/0.3 ML DISP.SYRIN SQ SCH (09:30)
[2022-07-26] MEDS: ACETAMINOPHEN 1000 MG/100 ML BAG IVPB PRN (09:31)
[2022-07-26] MEDS ORDERED: LACTATED RINGERS SOLUTION 1000 ML INFUS.BAG IV ONE (09:37)
[2022-07-26] MEDS: VASOPRESSIN 40 UNITS/100 ML BAG IV SCH ×2 (11:14→20:17)
[2022-07-26] MEDS: SODIUM CHLORIDE 0.45% 1,000 ML IV SCH (13:51)
[2022-07-26] MEDS: HEPARIN NA (PORCINE) 5,000 UNITS/ML 1ML VIAL SQ SCH ×2 (13:52→21:42)
[2022-07-26] MEDS: KCL 10 MEQ IVPB 10 MEQ/100 ML INFUS.BAG IVPB SCH (13:52)
[2022-07-26] MEDS: LACTATED RINGERS SOLUTION 1,000 ML/1,000 ML INFUS.BAG IV SCH (13:53)
[2022-07-26] MEDS: CHLORHEXIDINE GLUCONATE 4% CLEANSER FOR DECOLONIZATION TP SCH (21:43)
[2022-07-27] MEDS: CLINDAMYCIN 600MG PREMIX IVPB 600 MG/50 ML BAG IVPB SCH ×2 (01:27→09:50)
[2022-07-27] MEDS: PIPERACILLIN/TAZOB 2.25 GM 2.25 GM in DEXTROSE 5%-WATER - 50 ML IVPB SCH ×2 (01:27→09:50)
[2022-07-27] MEDS: HEPARIN NA (PORCINE) 5,000 UNITS/ML 1ML VIAL SQ SCH ×2 (05:51→14:11)
[2022-07-27] MEDS: SODIUM CHLORIDE 0.45% 1,000 ML IV SCH (05:52)
[2022-07-27] MEDS: VASOPRESSIN 40 UNITS/100 ML BAG IV SCH ×2 (05:54→17:29)
[2022-07-27] MEDS: MUPIROCIN 2% TOPICAL OINTMENT FOR DECOLONIZATION NS SCH (09:50)
[2022-07-27] MEDS ORDERED: LACTATED RINGERS SOLUTION 1000 ML INFUS.BAG IV ONE (10:48)
[2022-07-27 11:02] LABS: HEMATOCRIT 30.3 % (32.4-45.2); HEMOGLOBIN 10.2 GM/dL (10.7-15.3); MCH 30.5 pg (25.7-33.7); MCHC 33.8 g/dl (32.0-36.0); MEAN CELL VOLUME 90.3 fl (80-96); MEAN PLT VOLUME 10.4 fl (7.5-11.1); PLATELET COUNT 329 10^3/uL (134-434); RBC 3.35 M/mm3 (3.60-5.2); RDW 15.8 % (11.6-15.6); WHITE BLOOD COUNT 20.1 K/mm3 (4.0-10.0)
[2022-07-27 11:27] LABS: ALBUMIN 1.4 g/dl (3.4-5.0); CALCIUM 8.3 mg/dL (8.5-10.1)
[2022-07-27 11:28] LABS: BLOOD UREA NITROGEN 93.9 mg/dL (7-18); MAGNESIUM 3.1 mg/dL (1.8-2.4)
[2022-07-27 11:31] LABS: CREATININE 1.2 mg/dL (0.55-1.3); PHOSPHOROUS 5.6 mg/dL (2.5-4.9)
[2022-07-27 11:32] LABS: BILIRUBIN,TOTAL 0.8 mg/dL (0.2-1); TOT PROT 5.3 g/dl (6.4-8.2)
[2022-07-27 11:37] LABS: ANISOCYTOSIS 1+; MACROCYTOSIS 0
[2022-07-27] MEDS ORDERED: LACTATED RINGERS SOLUTION 1000 ML INFUS.BAG IV SCH (11:51)
[2022-07-27] MEDS: LACTATED RINGERS SOLUTION 1,000 ML/1,000 ML INFUS.BAG IV SCH ×2 (12:30→21:56)
[2022-07-27] MEDS ORDERED: MORPHINE SULFATE/0.9% NACL/PF 100 MG/100 ML BAG IVPB SCH (16:45)
[2022-07-28] MEDS: LACTATED RINGERS SOLUTION 1,000 ML/1,000 ML INFUS.BAG IV SCH ×2 (05:31→13:42)
[2022-07-28] MEDS ORDERED: MORPHINE SULFATE/0.9% NACL/PF 100 MG/100 ML BAG IVPB SCH (23:45)
[2022-07-30] MEDS ORDERED: LACTATED RINGERS SOLUTION 1,000 ML/1,000 ML INFUS.BAG IV SCH (00:26)
[2022-07-30] MEDS: MORPHINE SULFATE/0.9% NACL/PF 100 MG/100 ML BAG IVPB SCH (07:22)
[2022-07-30] MEDS: LACTATED RINGERS SOLUTION 1,000 ML/1,000 ML INFUS.BAG IV SCH (09:15)
[2022-07-31] MEDS: LACTATED RINGERS SOLUTION 1,000 ML/1,000 ML INFUS.BAG IV SCH ×2 (06:19→10:13)
[2022-07-31] MEDS: MORPHINE SULFATE/0.9% NACL/PF 100 MG/100 ML BAG IVPB SCH (06:36)
[2022-07-31 10:34] VITALS: BP 61/25; PULSE 84; RESP 6
[2022-07-31] MEDS ORDERED: ACETAMINOPHEN 1000 MG/100 ML BAG IVPB ONE (12:00)
[2022-07-31] MEDS ORDERED: ACETAMINOPHEN 1000 MG/100 ML BAG IVPB PRN (12:58)
[2022-07-31 23:27] VITALS: TEMP 99.1
== END 2022-08-01 04:00 | disposition expired | DRG 871 ==
LOC: JER 00:01 → JERBED 05:55 → JICU 10:09 → J6S 07-29 11:46
PROVIDERS: ADMIT Family Medicine; ATTEND Family Medicine
DX: A41.9 Sepsis, unspecified organism (principal); J96.90 Respiratory failure, unspecified, unspecified whether with hypoxia or hypercapnia; R65.21 Severe sepsis with septic shock; N39.0 Urinary tract infection, site not specified; N17.9 Acute kidney failure, unspecified; R64 Cachexia; M86.9 Osteomyelitis, unspecified; I96 Gangrene, not elsewhere classified; J98.11 Atelectasis; E87.0 Hyperosmolality and hypernatremia; E87.20 Acidosis, unspecified; F03.90 Unspecified dementia, unspecified severity, without behavioral disturbance, psychotic disturbance, mood disturbance, and anxiety; L89.150 Pressure ulcer of sacral region, unstageable; E11.9 Type 2 diabetes mellitus without complications; I10 Essential (primary) hypertension; J44.9 Chronic obstructive pulmonary disease, unspecified; E86.0 Dehydration; Z68.20 Body mass index [BMI] 20.0-20.9, adult; E78.5 Hyperlipidemia, unspecified
CPT/HCPCS: 0241U-QW; 36415; 71045-TC-FY; 74176-TC; 80048; 80053; 81003; 82550; 82553; 82803; 83605; 83735; 84100; 84484; 85025; 85610; 85730; 87040; 87070; 87076; 87086; 87186; 87205; 93005; 93010; 99291; 99292; G0480; J1644; J3490